=== PATIENT | female | born 1985 | race Caucasian/White ===

== ENCOUNTER 2016-09-04 20:03 | Emergency (ER) | payer SELFPAY ==
[~2016-09-04] VITALS: Ht 167.6 cm; Wt 72.6 kg
--- NOTE | 2016-09-04 20:03 | NUR ---
BIBA TO ER BED 7
--- NOTE | 2016-09-04 20:05 | NUR ---
30Y F BIBA C/O LAC TO LEFT CALF S/P FALL ON NAIL FROM RV AT HOME.PT DENIES N/V/D; SKIN IS PINK/WARM/DRY; AAOX4 WITH EVEN AND STEADY GAIT; LUNGS CLEAR BL; HR EVEN AND REGULAR; PT DENIES ANY FEVER, CP, SOB, OR COUGH AT THIS TIME; PATIENT STATES PAIN OF 7/10 AT THIS TIME; VSS; PATIENT POSITIONED FOR COMFORT; HOB ELEVATED; BEDRAILS UP X2; BED DOWN. ER MD MADE AWARE OF PT STATUS.
[2016-09-04 20:11] VITALS: BP 118/91
[2016-09-04] MEDS: ACETAMINOPHEN EXTRA STRENGTH 500 MG TAB PO ONE (20:40)
[2016-09-04 20:52] VITALS: BP 122/87
--- NOTE | 2016-09-04 20:52 | NUR ---
Patient discharged with v/s stable. Written and verbal after care instructions given and explained. Patient alert, oriented and verbalized understanding of instructions. Ambulatory with steady gait. All questions addressed prior to discharge. ID band removed. Patient advised to follow up with PMD. Rx of MOTRIN 600MG AND KEFLEX 500MG given. Patient educated on indication of medication including possible reaction and side effects. Opportunity to ask questions provided and answered.
== END 2016-09-04 20:52 | disposition home or self-care (01) ==
LOC: EDBD 20:03 → MED 20:03
DX: S81.812A Laceration without foreign body, left lower leg, initial encounter (principal); W22.8XXA Striking against or struck by other objects, initial encounter; Y93.89 Activity, other specified; Y92.89 Other specified places as the place of occurrence of the external cause; Y99.8 Other external cause status
CPT/HCPCS: 90471; 90715; 99283